=== PATIENT | female | born 1960 | race Caucasian/White ===

== ENCOUNTER 2016-11-08 13:51 | Emergency (ER) | payer OTHER ==
[~2016-11-08] VITALS: Ht 170.2 cm; Wt 116.0 kg
[2016-11-08 14:58] VITALS: BP 159/70
== END 2016-11-08 18:39 | disposition left against medical advice (07) ==
LOC: ER 18:36
DX: Z03.6 Encounter for observation for suspected toxic effect from ingested substance ruled out (principal); E11.9 Type 2 diabetes mellitus without complications; I10 Essential (primary) hypertension; Z98.890 Other specified postprocedural states; Z88.8 Allergy status to other drugs, medicaments and biological substances
CPT/HCPCS: 99281